=== PATIENT | female | born 1950 | race Caucasian/White ===

== ENCOUNTER 2023-09-11 14:15 | Outpatient (RCR) | payer MEDICARE, OTHER, SELFPAY ==
[2023-08-28 10:50] LABS: Eosinophils Percent Auto 0.3 % (0.0-7.0); Hematocrit 40.2 % (33.0-51.0); Hemoglobin* 12.7 gm/dL (12.0-16.0); Immature Granulocytes Pct Auto 1.6 %; Lymphocytes Percent Auto 8.2 % (20-44); Mean Corpuscular HGB Conc 32 gm/dL (32-36); Mean Corpuscular Hemoglobin 28 pg (26-34); Mean Corpuscular Volume 89 fL (80-100); Monocytes Percent Auto 7.3 % (0.0-11.0); Neutrophils Percent Auto 82.6 % (42.0-72.0); Platelet Count* 166 K/uL (140-440); RDW Coefficient of Variation % 16.5 % (11.5-15.5); Red Blood Count 4.53 m/uL (4.00-5.20); White Blood Count* 14.34 K/uL (4.50-11.00)
[2023-08-28 10:55] LABS: Slide Review Reflex No
[2023-08-28 11:16] LABS: Albumin* 3.6 g/dL (3.3-5.0)
[2023-08-28 11:17] LABS: Chloride* 97 mmol/L (96-114); Potassium* 4.2 mmol/L (3.6-5.1); Sodium* 130 mmol/L (135-149)
[2023-08-28 11:19] LABS: Anion Gap 3 mEq/L (7-15); Carbon Dioxide* 30 mmol/L (20-32); Creatinine* 0.8 mg/dL (0.5-1.5); Estimated Glomerular Filt Rate 77 ml/min
[2023-08-28 11:20] LABS: Alanine Aminotransferase* 30 U/L (4-35); Alkaline Phosphatase* 59 U/L (40-150); Aspartate Amino Transferase* 22 U/L (12-35); Blood Urea Nitrogen* 27 mg/dL (7-30); Calcium* 8.2 mg/dL (8.4-10.6); Glucose* 100 mg/dL (60-115); Total Protein* 6.3 g/dL (6.0-8.3)
[2023-09-04 15:07] LABS: Basophils Percent Auto 0.1 % (0.0-3.0); Eosinophils Percent Auto 0.1 % (0.0-7.0); Hemoglobin* 10.9 gm/dL (12.0-16.0); Immature Granulocytes Pct Auto 1.7 %; Lymphocytes Percent Auto 6.4 % (20-44); Mean Corpuscular HGB Conc 32 gm/dL (32-36); Mean Corpuscular Hemoglobin 29 pg (26-34); Mean Corpuscular Volume 90 fL (80-100); Monocytes Percent Auto 7.7 % (0.0-11.0); Platelet Count* 174 K/uL (140-440); RDW Coefficient of Variation % 19.7 % (11.5-15.5); Red Blood Count 3.76 m/uL (4.00-5.20)
[2023-09-04 15:09] LABS: Slide Review Reflex No
[2023-09-04 15:26] LABS: Albumin* 3.6 g/dL (3.3-5.0); Chloride* 97 mmol/L (96-114)
[2023-09-04 15:27] LABS: Potassium* 4.6 mmol/L (3.6-5.1); Sodium* 127 mmol/L (135-149)
[2023-09-04 15:29] LABS: Alanine Aminotransferase* 51 U/L (4-35); Alkaline Phosphatase* 61 U/L (40-150); Anion Gap 3 mEq/L (7-15); Aspartate Amino Transferase* 27 U/L (12-35); Bilirubin Total* 1.2 mg/dL (0.1-1.5); Blood Urea Nitrogen* 26 mg/dL (7-30); Carbon Dioxide* 27 mmol/L (20-32); Estimated Glomerular Filt Rate 59 ml/min; Glucose* 134 mg/dL (60-115); Total Protein* 6.2 g/dL (6.0-8.3)
[2023-09-11 14:48] LABS: Basophils Percent Auto 0.1 % (0.0-3.0); Eosinophils Percent Auto 0.1 % (0.0-7.0); Hematocrit 30.3 % (33.0-51.0); Hemoglobin* 9.6 gm/dL (12.0-16.0); Immature Granulocytes Pct Auto 9.4 %; Lymphocytes Percent Auto 8.2 % (20-44); Mean Corpuscular HGB Conc 32 gm/dL (32-36); Mean Corpuscular Hemoglobin 30 pg (26-34); Mean Corpuscular Volume 96 fL (80-100); Monocytes Percent Auto 7.8 % (0.0-11.0); Neutrophils Percent Auto 74.4 % (42.0-72.0); Platelet Count* 276 K/uL (140-440); RDW Coefficient of Variation % 22.4 % (11.5-15.5); Red Blood Count 3.17 m/uL (4.00-5.20); White Blood Count* 19.07 K/uL (4.50-11.00)
[2023-09-11 14:53] LABS: Slide Review Reflex No
[2023-09-11 15:14] LABS: Albumin* 3.6 g/dL (3.3-5.0); Chloride* 100 mmol/L (96-114); Potassium* 4.6 mmol/L (3.6-5.1); Sodium* 129 mmol/L (135-149)
[2023-09-11 15:17] LABS: Alanine Aminotransferase* 40 U/L (4-35); Alkaline Phosphatase* 76 U/L (40-150); Anion Gap 5 mEq/L (7-15); Aspartate Amino Transferase* 23 U/L (12-35); Bilirubin Total* 1.1 mg/dL (0.1-1.5); Blood Urea Nitrogen* 27 mg/dL (7-30); Carbon Dioxide* 24 mmol/L (20-32); Creatinine* 0.8 mg/dL (0.5-1.5); Estimated Glomerular Filt Rate 77 ml/min; Glucose* 166 mg/dL (60-115); Total Protein* 6.3 g/dL (6.0-8.3)
[2023-09-11 15:18] LABS: Calcium* 8.2 mg/dL (8.4-10.6)
--- NOTE | 2023-09-11 16:13 | ONC.NURNOTE ---
faxed labs to [facility]
== END 2024-09-08 10:58 | disposition home or self-care (01) ==
LOC: LAB 14:15
PROVIDERS: PCP Nurse Practitioner; Visit Provider Nurse Practitioner
DX: C71.9 Malignant neoplasm of brain, unspecified (principal)
CPT/HCPCS: 36415; 80053; 85025; 86361